=== PATIENT | female | born 1960 ===

== ENCOUNTER 2017-04-24 16:44 | Emergency (ER) | payer OTHER ==
[2017-04-24 16:50] VITALS: PULSE 80; RESP 18; TEMP 98.3; O2SAT 98
[2017-04-24 16:52] VITALS: BP 116/70
--- NOTE | 2017-04-24 17:33 | C.PDOC ---
History Of Present Illness pt c/o bilateral knee pain, which started after sitting playing with kids 5 days ago, felt like right knee was inflamed. vita sts she then bore more weight on left knee over last few days to compensate for pain in right and now left knee hurts too. denies injuries or fall. pt taking advil, has a knee brace. Time Seen by Provider: 04/24/17 17:00 Chief Complaint (Nursing): Lower Extremity Problem/Injury History Per: Patient History/Exam Limitations: no limitations Onset/Duration Of Symptoms: Days (5) Current Symptoms Are (Timing): Still Present Severity: Moderate Pain Scale Rating Of: 7 Past Medical History Reviewed: Historical Data, Nursing Documentation, Vital Signs Vital Signs: Last Vital Signs Temp 98.3 F 04/24/17 16:49 Pulse 80 04/24/17 16:49 Resp 18 04/24/17 16:49 BP 116/70 04/24/17 16:49 Pulse Ox 98 04/24/17 17:37 - Medical History PMH: No Chronic Diseases Family History: States: Unknown Family Hx - Social History Hx Alcohol Use: No Hx Substance Use: No - Immunization History Hx Tetanus Toxoid Vaccination: No Hx Influenza Vaccination: No Hx Pneumococcal Vaccination: No Review Of Systems Constitutional: Negative for: Fever, Chills Musculoskeletal: Positive for: Other (bilateral knee pain). Negative for: Neck Pain Skin: Negative for: Rash, Lesions, Bruising Neurological: Negative for: Weakness, Numbness Physical Exam - Physical Exam Appears: Non-toxic, No Acute Distress Skin: Warm, Dry Extremity: Other (mild right medial knee tenderness with mild swelling, from, no warmth or erythema. l,eft knee with from, non tender. no calf tenderness, no pedal edema. ) Pulses: Left Dorsalis Pedis: Normal, Right Dorsalis Pedis: Normal Neurological/Psych: Oriented x3, Normal Speech, Normal Cognition, Normal Motor, Normal Sensation ED Course And Treatment O2 Sat by Pulse Oximetry: 98 Medical Decision Making Medical Decision Making: bilateral knee pain right more than left, no leg swelling, no fever. pt often on knees to cleanl 619 pm no abnl seen on xray. will d/c pt home with knee brace, nsaids, f/u ortho. Disposition Counseled Patient/Family Regarding: Studies Performed, Diagnosis, Need For Followup, Rx Given - Disposition Referrals: Charu,Imran, MD [Staff Provider] - [facility] at [facility] [Outside] [facility] [Outside] Disposition: HOME/ ROUTINE Disposition Time: 18:23 Condition: STABLE Additional Instructions: Use la rodillera en la rodilla derecha para mayor comodidad. Aplique compresas fras a la rodilla derecha para ayudar con la hinchazn 3-4 veces al da bony 10 minutos cada vez. [place] ibuprofeno segn lo prescrito. Contine con el mdico de atencin primaria y ortopedista si el dolor persiste despus de nadeem semana ms. Prescriptions: Ibuprofen [Motrin] 600 mg PO TID #30 tab Instructions: Knee Pain (ED), Arthralgia (ED), Knee Exercises (GEN) Forms: Gen Discharge [facility] [place], [facility] ([place]) - Clinical Impression Clinical Impression: Knee pain, bilateral
--- NOTE | 2017-04-26 11:37 | RAD ---
PROCEDURE: Right Knee Radiographs. HISTORY: medial knee pain, mild swelling COMPARISON: None. FINDINGS: BONES: Normal. No fracture. JOINTS: Normal. No osteoarthritis. JOINT EFFUSION: Suprapatellar joint effusion suspect OTHER FINDINGS: None. IMPRESSION: Suprapatellar joint effusion suggested. No fracture or lytic lesion.
== END 2017-04-24 18:43 | disposition home or self-care (01) ==
LOC: C.ER 16:44
DX: M25.562 Pain in left knee (principal); M25.561 Pain in right knee